=== PATIENT | male | born 1935 | race Caucasian/White ===

== ENCOUNTER 2018-10-17 16:16 | Inpatient (IN) | payer MEDICARE, BC ==
[~2018-10-17] VITALS: Ht 170.2 cm; Wt 65.8 kg
[~2018-10-17 16:16] MED LIST: LEVOTHYROXINE SODIUM 25 MCG TABLET PO SCH
--- NOTE | 2018-10-17 16:34 | NUR ---
PT IS IN ROOM #2A. DR MAHAJAN EVALUATED THE PT.
[2018-10-17] MEDS ORDERED: FURO-152 PO (17:08)
[2018-10-17] MEDS ORDERED: SIMV20TA6 PO ×2 (17:08→21:18)
[2018-10-17] MEDS ORDERED: ZOLP10TA2 PO (17:08)
[2018-10-17] MEDS ORDERED: PANT40TA4 PO (17:08)
[2018-10-17] MEDS ORDERED: POTA10TA15 PO (17:08)
[2018-10-17] MEDS ORDERED: LISI10TA5 PO (17:08)
[2018-10-17] MEDS ORDERED: TRAM50TA2 PO (17:08)
[2018-10-17] MEDS ORDERED: OXYB5TAB11 PO (17:08)
[2018-10-17] MEDS ORDERED: QUET50TA PO (17:08)
[2018-10-17] MEDS ORDERED: LEVO25TA9 PO (17:08)
[2018-10-17] MEDS ORDERED: HYDROCODONE/APAP 10-325 MG TABLET PO ONE (17:15)
[2018-10-17] MEDS ORDERED: HYDROCODONE/APAP 10-325 MG TABLET ONE (17:18)
[2018-10-17] MEDS ORDERED: IV NORMAL SALINE 1000 ML BAG IV ONE (18:15)
[2018-10-17 18:43] LABS: BASOPHILS # (AUTO) 0.1 K/uL (0.0-8.0); BASOPHILS % (AUTO) 0.4 % (0.0-2.0); EOSINOPHILS # (AUTO) 0.1 K/uL (0.0-0.7); EOSINOPHILS % (AUTO) 0.4 % (0.0-7.0); HEMATOCRIT 45.6 % (36.7-47.1); HEMOGLOBIN 15.3 g/dL (12.5-16.3); LYMPHOCYTES # (AUTO) 1.1 K/uL (20.0-40.0); LYMPHOCYTES % (AUTO) 8.1 % (20.5-51.5); MEAN CORPUSCULAR HEMOGLOBIN 32.1 uug (23.8-33.4); MEAN CORPUSCULAR HGB CONC 34 g/dL (32.5-36.3); MEAN CORPUSCULAR VOLUME 95.6 fL (73.0-96.2); MONOCYTES # (AUTO) 0.8 K/uL (2.0-10.0); MONOCYTES % (AUTO) 5.7 % (0.0-11.0); NEUTROPHILS # (AUTO) 11.7 K/uL (1.8-8.9); NEUTROPHILS % (AUTO) 85.4 % (38.5-71.5); PLATELET COUNT (AUTO) 161 K/uL (152-348); RED BLOOD CELL COUNT(AUTO) 4.77 MIL/uL (4.06-5.63); WHITE BLOOD COUNT (AUTO) 13.7 K/uL (3.6-10.2)
[2018-10-17 18:51] LABS: CARBON DIOXIDE 26 mmol/L (21-32); CHLORIDE 103 mmol/L (98-107); GLUCOSE 110 mg/dL (74-106); POTASSIUM 3.5 mmol/L (3.5-5.1); UREA NITROGEN, BLOOD 16 mg/dL (7-18)
[2018-10-17 18:57] LABS: ALANINE AMINOTRANSFERASE 29 U/L (16-63); ALKALINE PHOSPHATASE 83 U/L (50-136); ASPARTATE AMINOTRANSFERASE 21 U/L (15-37); BILIRUBIN,DIRECT 0.3 mg/dL (0.0-0.2); BILIRUBIN,TOTAL 0.9 mg/dL (0.2-1.0); LIPASE 120 U/L (73-393); TOTAL PROTEIN, SERUM 7.8 g/dL (6.4-8.2)
--- NOTE | 2018-10-17 19:12 | NUR ---
Spoke to Noreen at [facility], she stated she will text Dr. Love to [facility]
--- NOTE | 2018-10-17 19:51 | NUR ---
Cecilio otero in [facility] - 10/17/18 at 1956 by SHARON REPORT WAS GIVEN TO CUSTOMER SUPPORT ANALYST. PT WAS TRANSFERED TO ROOM #323.
--- NOTE | 2018-10-17 19:56 | NUR ---
REPORT WAS GIVEN TO TECHNICAL ENGINEER. PT WAS TRANSFERED TO ROOM #304.
--- NOTE | 2018-10-17 20:15 | NUR ---
AFTER RECEIVING A REPORT FROM ER NURSE DOROTHY, PATIENT ARRIVED ON THE FLOOR IN A GURNEY. FAMILY IS AT BEDSIDE. PATIENT IS ALERT AND ORIENTED X4, C/O PAIN IN THE LEFT LATERAL UPPER THIGH AND POSTERIOR LEFT HIP. SKIN IS INTACT ASIDE FROM SMALL SUPERFICIAL SCRAPE ONT HE LEFT ELBOW. NO BRUISING NOTED. PATIENT WAS ASSESSED AND HISTORY WAS OBTAINED. INSPECTOR ADVANCED COMPOSITE IS IN PLACE, NORMAL SINUS ON THE MONITOR. ICE PACK WAS APPLIED TO THE PAINFUL AREA. PATIENT REPORTED A DISCREPANCY WITH A MEDICATION PROFILE. ON FURTHER INVESTIGATION: PATIENT PROVIDED HIS 'S MED LIST TO THE ER STAFF RESULTING IN WRONG MEDICATION INPUT AND POSSIBLY INCORRECT MEDICAL HX. PATIENT DENIES HAVING HYPOTHYROIDISM. BED IS IN LOCKED LOW POSITION, RAILS ARE UPX2, BED ALARM IS ON, CALL LIGHT GIVEN TO THE PATIENT. COMFORT AND SAFETY PROVIDED.
[2018-10-17 20:20] VITALS: BP 147/69
[2018-10-17] MEDS ORDERED: Medication Not On Formulary EA (Zolpidem Tartrate (Ambien) 10 MG) PO PRN (20:30)
[2018-10-17] MEDS ORDERED: MORPHINE SULFATE 2 MG/1 ML DISP.SYRIN IV PRN (20:30)
[2018-10-17] MEDS ORDERED: MAGNESIUM HYDROXIDE 30 ML LIQUID UDC PO PRN (20:30)
[2018-10-17] MEDS ORDERED: ACETAMINOPHEN 325 MG TABLET PO PRN (20:30)
[2018-10-17] MEDS ORDERED: TRAMADOL HCL 50 MG TABLET PO PRN (20:30)
[2018-10-17] MEDS ORDERED: ONDANSETRON 4 MG/2 ML VIAL IV PRN (20:30)
--- NOTE | 2018-10-17 20:49 | NUR ---
correct list of home meds was obtained from the family and entered into the system. Dr Love was notified of the situation.
[2018-10-17] MEDS ORDERED: SIMVASTATIN 20 MG TABLET PO SCH (21:00)
[2018-10-17] MEDS ORDERED: QUETIAPINE FUMARATE 25 MG TABLET PO SCH (21:00)
[2018-10-17] MEDS ORDERED: DOCUSATE SODIUM 250 MG CAPSULE PO SCH (21:00)
[2018-10-17] MEDS ORDERED: Medication Not On Formulary EA (Quetiapine Fumarate (Seroquel) 50 MG) PO SCH (21:00)
--- NOTE | 2018-10-17 21:00 | NUR ---
Patient is asking for food, sandwich and snacks given, ate 95%. C/O pain asking for pain meds. Ambulated to the bathroom with 1 person assist, pain is worsening. offered Tylenol or morphine. patient is considering. family is present.
[2018-10-17] MEDS ORDERED: MONT10TA22 PO (21:18)
[2018-10-17] MEDS ORDERED: FEXO180T94 PO (21:18)
[2018-10-17] MEDS ORDERED: GUAI600T53 PO (21:18)
[2018-10-17] MEDS ORDERED: DUTA0.5C PO (21:18)
[2018-10-17] MEDS ORDERED: RANI300T4 PO (21:18)
[2018-10-17] MEDS ORDERED: AZEL6DRO5 EACHEYE (21:18)
[2018-10-17] MEDS ORDERED: TRAV5DRO RIGHTEYE (21:21)
[2018-10-17] MEDS ORDERED: [UNRECOGNIZED DRUG - OTHER] PO (21:21)
[2018-10-17] MEDS ORDERED: LORA10TA7 PO (21:21)
[2018-10-17] MEDS ORDERED: TIOT18CA3 INH (21:21)
[2018-10-17] MEDS ORDERED: PANT40TA2 PO (21:23)
[2018-10-17] MEDS ORDERED: ZOLP5TAB8 PO (21:23)
[2018-10-17] MEDS ORDERED: DIAZ10TA4 PO (21:23)
[2018-10-17] MEDS ORDERED: PRAV20TA4 PO (21:23)
[2018-10-17] MEDS: DOCUSATE SODIUM 100 MG CAPSULE PO SCH (22:00)
--- NOTE | 2018-10-17 22:45 | NUR ---
at 2230 patient reports pain is 7/10, refused tylenol and morphine again, asking for [place]. Contacted Dr. Love for Rx. Order received and med given. BED IS IN LOCKED LOW POSITION, RAILS ARE UPX2, BED ALARM IS ON, CALL LIGHT GIVEN TO THE PATIENT. COMFORT AND SAFETY PROVIDED.
[2018-10-17] MEDS: HYDROCODONE/APAP 5-325MG TABLET PO PRN (23:01)
[2018-10-18] VITALS (7 sets, daily range): BP systolic 112–132; BP diastolic 48–61
[2018-10-18] MEDS: ZOLPIDEM 5 MG TABLET PO PRN ×2 (00:57→23:05)
--- NOTE | 2018-10-18 01:00 | NUR ---
patient did not have a complete relief from pain, asking for ambien at 0040. med was given per pt. request. BED IS IN LOCKED LOW POSITION, RAILS ARE UPX2, BED ALARM IS ON, CALL LIGHT GIVEN TO THE PATIENT. COMFORT AND SAFETY PROVIDED.
--- NOTE | 2018-10-18 06:13 | NUR ---
patient slept well after Ambien. Concerns will be endorsed to the day shift. Denies pain at 0600. comfort and safety measures are in place
[2018-10-18] MEDS: PANTOPRAZOLE SODIUM 40 MG TABLET.DR PO SCH (06:50)
[2018-10-18 07:49] LABS: BASOPHILS % (AUTO) 0.4 % (0.0-2.0); EOSINOPHILS # (AUTO) 0.2 K/uL (0.0-0.7); EOSINOPHILS % (AUTO) 2.4 % (0.0-7.0); HEMATOCRIT 42.5 % (36.7-47.1); HEMOGLOBIN 14.2 g/dL (12.5-16.3); LYMPHOCYTES # (AUTO) 1.5 K/uL (20.0-40.0); LYMPHOCYTES % (AUTO) 19.7 % (20.5-51.5); MEAN CORPUSCULAR HGB CONC 33 g/dL (32.5-36.3); MEAN CORPUSCULAR VOLUME 95.9 fL (73.0-96.2); MONOCYTES # (AUTO) 0.9 K/uL (2.0-10.0); MONOCYTES % (AUTO) 11.3 % (0.0-11.0); NEUTROPHILS % (AUTO) 66.2 % (38.5-71.5); PLATELET COUNT (AUTO) 142 K/uL (152-348); RED BLOOD CELL COUNT(AUTO) 4.43 MIL/uL (4.06-5.63); WHITE BLOOD COUNT (AUTO) 7.6 K/uL (3.6-10.2)
[2018-10-18 08:13] LABS: THYROID STIMULATING HORMONE 3.085 mIU/mL (0.358-3.740)
[2018-10-18 08:44] LABS: ALANINE AMINOTRANSFERASE 15 U/L (16-63); ALKALINE PHOSPHATASE 65 U/L (50-136); ASPARTATE AMINOTRANSFERASE 9 U/L (15-37); BILIRUBIN,TOTAL 1.4 mg/dL (0.2-1.0); CARBON DIOXIDE 28 mmol/L (21-32); CHLORIDE 104 mmol/L (98-107); CHOLESTEROL 126 mg/dL (<200); GLUCOSE 94 mg/dL (74-106); HDL CHOLESTEROL 46 mg/dL (40-60); MAGNESIUM 1.8 mg/dL (1.8-2.4); PHOSPHOROUS 3.1 mg/dL (2.5-4.9); POTASSIUM 3.5 mmol/L (3.5-5.1); TOTAL PROTEIN, SERUM 6.5 g/dL (6.4-8.2); TRIGLYCERIDES 69 MG/DL (30-150); UREA NITROGEN, BLOOD 12 mg/dL (7-18)
[2018-10-18] MEDS ORDERED: LISINOPRIL 10 MG TABLET PO SCH (09:00)
[2018-10-18] MEDS ORDERED: POTASSIUM CHLORIDE 20 MEQ TAB.PRT.SR PO SCH (09:00)
[2018-10-18] MEDS ORDERED: PANTOPRAZOLE SODIUM 40 MG TABLET.DR PO SCH (09:00)
[2018-10-18] MEDS ORDERED: FUROSEMIDE 20 MG TABLET PO SCH (09:00)
[2018-10-18] MEDS ORDERED: OXYBUTYNIN CHLORIDE 5 MG TABLET PO SCH (09:00)
[2018-10-18] MEDS: HYDROCODONE/APAP 5-325MG TABLET PO PRN ×3 (10:32→22:04)
[2018-10-18] MEDS: MONTELUKAST SODIUM 10 MG TABLET PO SCH (10:33)
[2018-10-18] MEDS: FEXOFENADINE HCL 180 MG TABLET PO SCH (13:33)
--- NOTE | 2018-10-18 14:18 | NUR ---
patient resting in bed with no distress.
--- NOTE | 2018-10-18 19:20 | NUR ---
Received patient lying in bed. AAOX4. In no acute distress. Complain of pain on LLE. Patient had [place] at 1753. IV site on left AC intact and patent. NSR on tele at 72/min. Needs assessed and attended to. Safety measure initiated and call ventura within reach.
[2018-10-18] MEDS: DOCUSATE SODIUM 100 MG CAPSULE PO SCH (20:38)
[2018-10-18] MEDS ORDERED: DUTASTERIDE 0.5 MG CAPSULE PO SCH (21:00)
[2018-10-18] MEDS ORDERED: SIMVASTATIN 20 MG TABLET PO SCH (21:00)
[2018-10-19 03:14] VITALS: BP 127/47
[2018-10-19] MEDS: PANTOPRAZOLE SODIUM 40 MG TABLET.DR PO SCH (06:13)
--- NOTE | 2018-10-19 06:26 | NUR ---
Slept well last night. Remains AOX4. In no acute distress. Denies any further pain at this time. IV site on left AC intact and patent. NSR on tele at 74/min. Needs attended to and met. Safety measure maintained and call ventura within reach.
[2018-10-19 06:59] LABS: BASOPHILS % (AUTO) 0.5 % (0.0-2.0); EOSINOPHILS # (AUTO) 0.2 K/uL (0.0-0.7); EOSINOPHILS % (AUTO) 2.5 % (0.0-7.0); HEMATOCRIT 42.5 % (36.7-47.1); HEMOGLOBIN 14.4 g/dL (12.5-16.3); LYMPHOCYTES # (AUTO) 1.3 K/uL (20.0-40.0); LYMPHOCYTES % (AUTO) 16.9 % (20.5-51.5); MEAN CORPUSCULAR HEMOGLOBIN 32.5 uug (23.8-33.4); MEAN CORPUSCULAR HGB CONC 34 g/dL (32.5-36.3); MEAN CORPUSCULAR VOLUME 96.2 fL (73.0-96.2); MONOCYTES # (AUTO) 0.8 K/uL (2.0-10.0); MONOCYTES % (AUTO) 10.1 % (0.0-11.0); NEUTROPHILS # (AUTO) 5.5 K/uL (1.8-8.9); PLATELET COUNT (AUTO) 134 K/uL (152-348); RED BLOOD CELL COUNT(AUTO) 4.42 MIL/uL (4.06-5.63); WHITE BLOOD COUNT (AUTO) 7.9 K/uL (3.6-10.2)
[2018-10-19 07:13] LABS: CARBON DIOXIDE 29 mmol/L (21-32); CHLORIDE 105 mmol/L (98-107); GLUCOSE 99 mg/dL (74-106); POTASSIUM 3.8 mmol/L (3.5-5.1); UREA NITROGEN, BLOOD 12 mg/dL (7-18)
[2018-10-19 08:00] VITALS: BP 104/42
--- NOTE | 2018-10-19 08:00 | NUR ---
PATIENT RESTING IN BED DRY AND COMFORTABLE.. AWARE TO CALL IF HELP NEEDED. CALL LIGHT WITHIN REACH.
[2018-10-19] MEDS: MONTELUKAST SODIUM 10 MG TABLET PO SCH (10:11)
[2018-10-19] MEDS: FEXOFENADINE HCL 180 MG TABLET PO SCH (10:21)
[2018-10-19 11:06] VITALS: BP 125/56
[2018-10-19] MEDS: HYDROCODONE/APAP 5-325MG TABLET PO PRN ×2 (14:05→18:33)
[2018-10-19 15:07] VITALS: BP 110/49
--- NOTE | 2018-10-19 18:43 | NUR ---
DISCHARGED PATIENT HOME IN IMPROVED CONDITION VIA WHEECHAIR WITH NO DISTRESS AND SON HERE TO CIVIL CELEBRANT PATIENT. [facility] TO SEE PATIENT HOME.IV DCD INTACT.
== END 2018-10-19 18:53 | disposition home health service (06) | DRG 74 ==
LOC: ER 16:18 → TELE3 19:41
PROVIDERS: ADMIT Internal Medicine; ATTEND Nurse Practitioner Acute Care
DX: G90.8 Other disorders of autonomic nervous system (principal); E44.1 Mild protein-calorie malnutrition; G62.9 Polyneuropathy, unspecified; M25.552 Pain in left hip; W18.39XA Other fall on same level, initial encounter; Y93.01 Activity, walking, marching and hiking; Y92.015 Private garage of single-family (private) house as the place of occurrence of the external cause; J43.9 Emphysema, unspecified; E03.9 Hypothyroidism, unspecified; Z68.22 Body mass index [BMI] 22.0-22.9, adult; J45.909 Unspecified asthma, uncomplicated; F41.9 Anxiety disorder, unspecified; K21.9 Gastro-esophageal reflux disease without esophagitis; E78.5 Hyperlipidemia, unspecified; K57.30 Diverticulosis of large intestine without perforation or abscess without bleeding; Z79.899 Other long term (current) drug therapy
CPT/HCPCS: 36415; 70030-TC; 70450; 71045; 72192; 73551; 83605; 83690; 83735; 84100; 84443; 85025; 85730; 87040; 93005; 93307; 93880; 97116; 97530; A4663; G0378; J2270; J7030